=== PATIENT | male | born 1945 | race Caucasian/White ===

== ENCOUNTER 2024-06-18 19:13 | Inpatient (IN) | payer MEDICARE ==
[~2024-06-18] VITALS: Ht 185.4 cm; Wt 127.0 kg
[2024-06-18] MEDS ORDERED: GABA100C PO (19:39)
[2024-06-18] MEDS ORDERED: MAGN400O6 PO (19:39)
[2024-06-18] MEDS ORDERED: MELA3CAP2 PO (19:39)
[2024-06-18] MEDS ORDERED: MULT-213 PO (19:39)
[2024-06-18] MEDS ORDERED: NA P133E RC (19:39)
[2024-06-18] MEDS ORDERED: MAG30ORA PO (19:39)
[2024-06-18] MEDS ORDERED: ACET650T10 PO (19:39)
[2024-06-18] MEDS ORDERED: CLON0.1T PO (19:39)
[2024-06-18] MEDS ORDERED: TAMS-3 PO (19:39)
[2024-06-18] MEDS ORDERED: LIDO30AD10 TD (19:39)
[2024-06-18] MEDS ORDERED: BISA10SU61 RC (19:39)
[2024-06-18] MEDS ORDERED: CYAN100T9 PO (19:39)
[2024-06-18] MEDS ORDERED: L. A1TAB10 PO (19:39)
[2024-06-18] MEDS ORDERED: FINA5TAB11 PO (19:39)
[2024-06-18] MEDS ORDERED: LEVO100T10 PO (19:39)
[2024-06-18 20:28] LABS: ALANINE AMINOTRANSFERASE 25 U/L (16-63); ALBUMIN 2.8 g/dL (3.4-5.0); ALKALINE PHOSPHATASE 94 U/L (50-136); ASPARTATE AMINOTRANSFERASE 17 U/L (15-37); BILIRUBIN,DIRECT 0.1 mg/dL (0.0-0.2); BILIRUBIN,TOTAL 0.3 mg/dL (0.2-1.0); CALCIUM 9.2 mg/dL (8.5-10.1); CARBON DIOXIDE 30 mmol/L (21-32); CHLORIDE 108 mmol/L (98-107); GLUCOSE 118 mg/dL (74-106); SODIUM SERUM 138 mmol/L (136-145); TOTAL PROTEIN, SERUM 7.1 g/dL (6.4-8.2); UREA NITROGEN, BLOOD 28 mg/dL (7-18)
[2024-06-18 20:45] LABS: ETHANOL < 3 MG/DL (0-10)
[2024-06-18 21:06] LABS: THYROID STIMULATING HORMONE 11.141 mIU/mL (0.358-3.740)
[2024-06-18 21:16] LABS: *BILIRUBIN,URIN NEGATIVE (NEGATIVE); *BLOOD, URINE NEGATIVE (NEGATIVE); *CLARITY,URINE CLEAR (CLEAR); *COLOR,URINE YELLOW (YELLOW); *KETONES,URINE NEGATIVE (NEGATIVE); *PROTEIN,URINE NEGATIVE (NEGATIVE); *UROBILINOGEN,URINE 0.2 E.U./dl (NORMAL); LEUKOCYTE ESTERASE ,URINE NEGATIVE (NEGATIVE); NITRITE, URINE NEGATIVE (NEGATIVE); PH,URINE 5.5 (5.0-8.0); UGLUCOSE NEGATIVE (NEGATIVE)
[2024-06-18 21:24] LABS: *AMPHETAMINE, URINE NEGATIVE (NEGATIVE); *BARBITURATE, URINE NEGATIVE (NEGATIVE); *BENZODIAZEPINE, URINE NEGATIVE (NEGATIVE); *CANNABINOID, URINE NEGATIVE (NEGATIVE); *COCCAINE, URINE NEGATIVE (NEGATIVE); *OPIATE, URINE NEGATIVE (NEGATIVE); *PHENCYCLIDINE SCREEN,URINE NEGATIVE (NEGATIVE); FENTANYL, URINE NEGATIVE (NEGATIVE)
[2024-06-18 22:06] LABS: BASOPHILS # (AUTO) 0.1 K/UL (0.0-0.2); DIFFERENTIAL COMMENT 0; EOSINOPHILS # (AUTO) 0.5 K/uL (0.0-0.7); EOSINOPHILS % (AUTO) 6.1 % (0.0-7.0); HEMATOCRIT 43.3 % (36.7-47.1); HEMOGLOBIN 14.4 g/dL (12.5-16.3); LYMPHOCYTES % (AUTO) 12.2 % (20.5-51.5); MEAN CORPUSCULAR HEMOGLOBIN 30.8 uug (23.8-33.4); MEAN CORPUSCULAR HGB CONC 33 g/dL (32.5-36.3); MEAN CORPUSCULAR VOLUME 92.7 fL (73.0-96.2); MONOCYTES # (AUTO) 0.7 K/uL (0.1-1.30); MONOCYTES % (AUTO) 8.5 % (0.0-11.0); NEUTROPHILS # (AUTO) 5.6 K/uL (1.8-8.9); NEUTROPHILS % (AUTO) 72.2 % (38.5-71.5); PLATELET COUNT (AUTO) 180 K/uL (152-348); RED BLOOD CELL COUNT(AUTO) 4.67 MIL/uL (4.06-5.63); RED CELL DISTRIBUTION WIDTH 15.8 % (12.1-16.2); WHITE BLOOD COUNT (AUTO) 7.8 K/uL (3.6-10.2)
[2024-06-18] MEDS: ASPIRIN 81 MG TAB.CHEW PO ONE (23:02)
[2024-06-18] MEDS ORDERED: REMEDY ESSENTIAL ZINC PASTE 113 GM TP PRN (23:45)
[2024-06-18] MEDS ORDERED: ENOXAPARIN SODIUM 100 MG/ML DISP.SYRIN SQ ONE (23:45)
[2024-06-18] MEDS ORDERED: MORPHINE SULFATE 2 MG/1 ML DISP.SYRIN IV PRN (23:45)
[2024-06-18] MEDS ORDERED: NITROGLYCERIN 0.4 MG/TAB BOTTLE SL PRN (23:45)
[2024-06-18] MEDS ORDERED: ONDANSETRON 4 MG/2 ML VIAL IV PRN (23:45)
[2024-06-18] MEDS ORDERED: MAGNESIUM HYDROXIDE 30 ML LIQUID UDC PO PRN (23:45)
[2024-06-18] MEDS ORDERED: ACETAMINOPHEN 325 MG TABLET PO PRN (23:45)
[2024-06-19] MEDS: ASPIRIN 81 MG TAB.CHEW PO SCH (00:59)
[2024-06-19] MEDS: ENOXAPARIN SODIUM 60 MG/0.6 ML DISP.SYRIN SQ ONE (01:50)
[2024-06-19] MEDS: ENOXAPARIN SODIUM 120 MG/0.8 ML SYRINGE SQ ONE (01:51)
[2024-06-19 05:03] VITALS: BP 139/85; TEMP 98.4; O2SAT 92
[2024-06-19] MEDS: PANTOPRAZOLE SODIUM 40 MG TABLET.DR PO SCH (06:36)
[2024-06-19 07:25] VITALS: BP 164/74; TEMP 98.3; O2SAT 95
[2024-06-19 11:02] VITALS: BP 129/73; TEMP 98.1; O2SAT 94
[2024-06-19] MEDS ORDERED: MELA3TAB41 PO (11:03)
[2024-06-19 15:28] VITALS: BP 135/66; TEMP 97.5; O2SAT 94
[2024-06-19] MEDS: TAMSULOSIN HCL 0.4 MG CAP.SR.24H PO SCH (17:00)
[2024-06-19 19:15] VITALS: BP 126/72; TEMP 98.1; O2SAT 92
[2024-06-19] MEDS ORDERED: ASPI81TA31 PO (20:03)
[2024-06-20] MEDS ORDERED: PETR113P TP (06:57)
[2024-06-20] MEDS ORDERED: NITR0.4T48 SL (06:57)
[2024-06-20] MEDS ORDERED: PANT40TA49 PO (06:57)
[2024-06-20] MEDS ORDERED: LEVOTHYROXINE SODIUM 100 MCG TABLET PO SCH (07:00)
[2024-06-20] MEDS ORDERED: CYANOCOBALAMIN 100 MCG TABLET PO SCH (09:00)
[2024-06-20] MEDS ORDERED: LIDOCAINE 5% PATCH TD SCH (09:00)
[2024-06-20] MEDS ORDERED: FINASTERIDE 5 MG TABLET PO SCH (09:00)
== END 2024-06-19 21:25 | DRG 280 ==
LOC: ER 19:13 → TELE3 06-19 00:11
PROVIDERS: ATTEND Nurse Practitioner Acute Care
DX: I25.10 Atherosclerotic heart disease of native coronary artery without angina pectoris (principal); G93.41 Metabolic encephalopathy; I21.A1 Myocardial infarction type 2; I13.0 Hypertensive heart and chronic kidney disease with heart failure and stage 1 through stage 4 chronic kidney disease, or unspecified chronic kidney disease; I50.32 Chronic diastolic (congestive) heart failure; F03.C11 Unspecified dementia, severe, with agitation; E86.0 Dehydration; D63.8 Anemia in other chronic diseases classified elsewhere; N18.9 Chronic kidney disease, unspecified; Z79.899 Other long term (current) drug therapy; Z98.42 Cataract extraction status, left eye; Z98.41 Cataract extraction status, right eye; E03.9 Hypothyroidism, unspecified; K80.20 Calculus of gallbladder without cholecystitis without obstruction; N40.0 Benign prostatic hyperplasia without lower urinary tract symptoms; R13.10 Dysphagia, unspecified
CPT/HCPCS: 36415; 84443; 84484; 85025; 93307; A4606; A4663; G0378; G0480; J1650

== ENCOUNTER 2024-06-19 20:32 | Inpatient (IN) | payer MEDICARE ==
[~2024-06-19] VITALS: Ht 180.3 cm; Wt 117.9 kg
[~2024-06-19 20:32] MED LIST: ACET650T10 PO; ASPI81TA31 PO; BISA10SU61 RC; CLON0.1T PO; CYAN100T9 PO; FINA5TAB11 PO; GABA100C PO; L. A1TAB10 PO; LEVO100T10 PO; LIDO30AD10 TD; MAG30ORA PO; MAGN400O6 PO; MELA3CAP2 PO; MELA3TAB41 PO; MULT-213 PO; NA P133E RC; TAMS-3 PO
[2024-06-19 21:30] VITALS: BP 121/63; TEMP 97.5; O2SAT 94
[2024-06-19] MEDS ORDERED: ZOLPIDEM 5 MG TABLET PO PRN ×2 (22:00)
[2024-06-19] MEDS ORDERED: LORAZEPAM 1 MG TABLET PO PRN ×2 (22:00)
[2024-06-19] MEDS ORDERED: MAGNESIUM HYDROXIDE 30 ML LIQUID UDC PO PRN (22:00)
[2024-06-19] MEDS ORDERED: MAG HYDROX/AL HYDROX/SIMETH 30 ML LIQUID UDC PO PRN (22:00)
[2024-06-19] MEDS: BLOOD SUGAR DIAGNOSTIC 1 EACH STRIP VI ONE (22:21)
[2024-06-20] MEDS ORDERED: ZOLPIDEM 5 MG TABLET PO PRN (06:45)
[2024-06-20] MEDS ORDERED: PANT40TA49 PO (06:57)
[2024-06-20] MEDS ORDERED: PETR113P TP (06:57)
[2024-06-20] MEDS ORDERED: NITR0.4T48 SL (06:57)
[2024-06-20 07:43] VITALS: BP 114/81; TEMP 98.2; O2SAT 94
[2024-06-20] MEDS: DIVALPROEX SPRINKLE 125 MG CAP.SPRINK PO SCH (09:58)
[2024-06-20] MEDS: OLANZAPINE ZYDIS 5 MG TAB.RAPDIS PO SCH (09:58)
[2024-06-20] MEDS: LORAZEPAM 1 MG TABLET PO PRN (11:44)
[2024-06-20] MEDS ORDERED: CLONIDINE HCL 0.1 MG TABLET PO PRN (14:00)
[2024-06-20] MEDS ORDERED: NITROGLYCERIN 0.4 MG/TAB BOTTLE SL PRN (14:00)
[2024-06-20 15:13] VITALS: BP 124/69; TEMP 98.2; O2SAT 94
[2024-06-20] MEDS: TAMSULOSIN HCL 0.4 MG CAP.SR.24H PO SCH (16:58)
[2024-06-20 20:00] VITALS: BP 150/83; TEMP 98.1; O2SAT 94
[2024-06-21] MEDS: LEVOTHYROXINE SODIUM 100 MCG TABLET PO SCH (06:50)
[2024-06-21] MEDS: PANTOPRAZOLE SODIUM 40 MG TABLET.DR PO SCH (06:50)
[2024-06-21 07:35] VITALS: BP 109/63; TEMP 98.2; O2SAT 94
[2024-06-21] MEDS: LIDOCAINE 5% PATCH TD SCH (09:00)
[2024-06-21] MEDS: ASPIRIN 81 MG TAB.CHEW PO SCH (09:03)
[2024-06-21] MEDS: CYANOCOBALAMIN 100 MCG TABLET PO SCH (09:03)
[2024-06-21] MEDS: TAMSULOSIN HCL 0.4 MG CAP.SR.24H PO SCH (09:03)
[2024-06-21] MEDS: FINASTERIDE 5 MG TABLET PO SCH (09:04)
[2024-06-21 15:30] VITALS: BP 121/62; TEMP 98.2; O2SAT 96
[2024-06-21 20:00] VITALS: BP 140/67; TEMP 97.9
[2024-06-21 20:05] VITALS: O2SAT 95
[2024-06-22 07:31] VITALS: BP 155/76; TEMP 98.2; O2SAT 91
[2024-06-22 15:01] VITALS: BP 125/73; TEMP 98.2; O2SAT 91
[2024-06-22 20:36] VITALS: BP 108/60; TEMP 97.2; O2SAT 90
[2024-06-23 08:02] VITALS: BP 129/75; TEMP 98; O2SAT 94
[2024-06-23 16:24] VITALS: BP 164/77; TEMP 97.7; O2SAT 98
[2024-06-23 20:15] VITALS: BP 132/74; TEMP 98.1; O2SAT 96
[2024-06-24] MEDS: OLANZAPINE ZYDIS 5 MG TAB.RAPDIS PO SCH (08:31)
[2024-06-24 16:40] VITALS: BP 100/67; TEMP 98; O2SAT 100
[2024-06-24 19:50] VITALS: BP 118/66; TEMP 98.1; O2SAT 98
[2024-06-25 08:04] VITALS: BP 100/63; TEMP 98.1; O2SAT 94
[2024-06-25 16:15] VITALS: BP 152/54; TEMP 98; O2SAT 97
[2024-06-25 20:00] VITALS: BP 145/60; TEMP 98.1; O2SAT 92
[2024-06-26 07:41] VITALS: BP 133/55; TEMP 97.8; O2SAT 96
[2024-06-26 17:30] VITALS: BP 140/88; TEMP 97.1; O2SAT 95
[2024-06-26 19:36] VITALS: BP 147/75; TEMP 97.7; O2SAT 93
[2024-06-27 07:56] VITALS: BP 121/64; TEMP 98; O2SAT 91
[2024-06-27] MEDS: ACETAMINOPHEN 325 MG TABLET PO PRN (15:00)
[2024-06-27 15:18] VITALS: BP 143/61; TEMP 97.4; O2SAT 97
[2024-06-27 19:49] VITALS: BP 122/81; TEMP 97.5; O2SAT 93
[2024-06-28 08:02] VITALS: BP 147/89; TEMP 98; O2SAT 100
[2024-06-28 16:46] VITALS: BP 117/79; TEMP 98.3; O2SAT 98
[2024-06-28 19:54] VITALS: BP 134/76; TEMP 98.1; O2SAT 98
[2024-06-28] MEDS: REMEDY ESSENTIAL ZINC PASTE 113 GM TOP SCH (21:32)
[2024-06-29 07:47] VITALS: BP 130/81; TEMP 98; O2SAT 94
[2024-06-29 15:04] VITALS: BP 110/66; TEMP 98; O2SAT 96
[2024-06-29 20:01] VITALS: BP 103/64; TEMP 93.3; O2SAT 92
[2024-06-30 07:42] VITALS: BP 143/68; TEMP 98; O2SAT 94
[2024-06-30 14:44] VITALS: BP 113/77; TEMP 98; O2SAT 94
[2024-06-30 19:57] VITALS: BP 136/76; TEMP 98.1; O2SAT 95
[2024-07-01 09:49] VITALS: BP 115/75; TEMP 98.1; O2SAT 99
== END 2024-07-01 13:15 | DRG 885 ==
LOC: GPS 20:32
PROVIDERS: ADMIT Psychiatry & Neurology Psychiatry
PROC: 0HBRXZZ Excision of Toe Nail, External Approach (ICD-10-PCS; principal; 2024-06-26)
DX: F29 Unspecified psychosis not due to a substance or known physiological condition (principal); N18.9 Chronic kidney disease, unspecified; I21.A1 Myocardial infarction type 2; G93.41 Metabolic encephalopathy; F03.918 Unspecified dementia, unspecified severity, with other behavioral disturbance; I50.32 Chronic diastolic (congestive) heart failure; F31.9 Bipolar disorder, unspecified; I25.10 Atherosclerotic heart disease of native coronary artery without angina pectoris; B35.1 Tinea unguium; M79.675 Pain in left toe(s); M79.674 Pain in right toe(s); N40.0 Benign prostatic hyperplasia without lower urinary tract symptoms; L60.3 Nail dystrophy; E03.9 Hypothyroidism, unspecified; K80.20 Calculus of gallbladder without cholecystitis without obstruction; D63.1 Anemia in chronic kidney disease; Z87.19 Personal history of other diseases of the digestive system; Z98.42 Cataract extraction status, left eye; Z98.41 Cataract extraction status, right eye
CPT/HCPCS: 71045